=== PATIENT | female | born 1995 | race Caucasian/White ===

== ENCOUNTER 2018-09-26 10:16 | Emergency (ER) | payer OTHER, MEDICAID ==
[~2018-09-26] VITALS: Ht 157.5 cm; Wt 54.4 kg
[~2018-09-26 10:16] MED LIST: PRENATA CHEWAB1 EACH PO
[2018-09-26] MEDS ORDERED: NABUMETONE 750750 M1 PO (11:26)
[2018-09-26] MEDS ORDERED: NORCO 5-325 TA1 EACH PO (11:26)
[2018-09-26 11:55] VITALS: BP 101/70
== END 2018-09-26 11:55 | disposition home or self-care (01) ==
LOC: M.ERS 10:16
DX: M25.541 Pain in joints of right hand (principal); Z88.8 Allergy status to other drugs, medicaments and biological substances

== ENCOUNTER 2019-06-30 11:23 | Emergency (ER) | payer OTHER ==
[~2019-06-30] VITALS: Ht 157.5 cm; Wt 54.4 kg
[~2019-06-30 11:23] MED LIST changes: +NABUMETONE 750750 M1 PO; +NORCO 5-325 TA1 EACH PO
[2019-06-30 11:49] LABS: URINE BILIRUBIN NEGATIVE (Negative); URINE BLOOD NEGATIVE (Negative); URINE CLARITY CLEAR; URINE COLOR YELLOW; URINE GLUCOSE-RANDOM NEGATIVE (Negative); URINE KETONES NEGATIVE (Negative); URINE LEUKOCYTES-REFLEX NEGATIVE (Negative); URINE NITRITE-REFLEX NEGATIVE (Negative); URINE PROTEIN NEGATIVE (Negative); URINE SPECIFIC GRAVITY >= 1.030 (1.005-1.030); URINE UROBILINOGEN 0.2 E.U./dl (0.2-1.0)
[2019-06-30] MEDS ORDERED: METRONIDAZOLE500 M4 PO (12:15)
[2019-06-30 12:23] VITALS: BP 111/69
== END 2019-06-30 12:25 | disposition home or self-care (01) ==
LOC: M.ERS 11:23
PROVIDERS: Family Medicine
DX: N89.8 Other specified noninflammatory disorders of vagina (principal); Z88.6 Allergy status to analgesic agent